=== PATIENT | male | born 1980 | race Caucasian/White ===

== ENCOUNTER 2021-09-26 08:00 | Day surgery (SDC) | payer OTHER ==
[2021-09-26] VITALS (139 sets, daily range): BP systolic 93–176; BP diastolic 51–100
[~2021-09-26] VITALS: Ht 172.7 cm; Wt 86.0 kg
--- NOTE | 2021-09-26 07:40 | NUR ---
PT ARRIVES AMBULATORY TO FLOOR WITH SIGNIFICANT OTHER. ORIENTED TO ROOM & CALL LIGHT. CONSENTS OBTAINED.
--- NOTE | 2021-09-26 07:45 | NUR ---
discussed poc with pt and understanding stated. pt alert and oriented in no distress. all questions answered.
[2021-09-26 08:42] LABS: HEMATOCRIT 49.6 % (39.0-50.0); HEMOGLOBIN 16.3 g/dl (14.0-18.0); IMMATURE GRANULOCYTES 0.2 % (0.0-5.0); MEAN CELL VOLUME 91.9 fL CALC (80.0-100.0); MEAN CORPUSCULAR HGB 30.2 pG CALC (26.0-32.0); MEAN CORPUSCULAR HGB CONC 32.9 g/dL CAL (32.0-36.0); NEUT# 3.16 thou/uL (1.82-7.42); RED BLOOD COUNT 5.4 mill/uL (4.70-6.10)
--- NOTE | 2021-09-26 08:55 | NUR ---
vs obtained and Dr Bay notified. new orders received.
[2021-09-26 09:18] LABS: ALBUMIN 4.6 g/dL (3.2-5.0); ALKALINE PHOSPHATASE 73 u/l (38-126); ANION GAP 12 (6-22 (CALC)); BILIRUBIN, TOTAL 0.6 mg/dL (0.0-1.4); BUN 12 mg/dL (9-20); BUN/CREATININE RATIO 12 (12-20 (CALC)); CARBON DIOXIDE 33 mmol/l (22-30); CHLORIDE 99 mmol/l (95-108); GFR > 60 ML/MIN (>=60 (CALC)); GFR FOR AFR.AMER. > 60 ML/MIN (>=60 (CALC)); POTASSIUM 3.5 mmol/l (3.5-5.1); SGOT/AST 25 u/l (17-59); SODIUM 140 mmol/l (137-146)
--- NOTE | 2021-09-26 09:40 | NUR ---
dr rodriguez at bedside
--- NOTE | 2021-09-26 10:15 | NUR ---
pt resting in no distress. call light within reach and encouraged to call for assistance.
--- NOTE | 2021-09-26 11:45 | NUR ---
Induction Note Patient to [facility] procedure room. Time out performed at 1145. Patient placed on monitors, Imelda hugger, bilateral wrist restraints applied for ET tube protection. Versed 5mg given IV push at 1147 Tourniquet applied to rt arm Lidocaine 100mg given at IV push followed by Rocoronium 10mg at 1148 IV push and held for 90 seconds. Propofol bolus of 20mg given at 1149 IV push. Succinylcholine 80mg given IV push at . Smooth intubation with 7.5 ETT. Positive CO2. Positive Auscultation for air exchange. Patient placed on ventilator for spontaneous ventilation. Placed on Propofol IV drip at 12. OG inserted. Positive air on auscultation. Positive gastric content. Stomach washed at this time. Naltrexone 75mg given via OG tube with Clonidine 02. mg given via OG Tube. OG clamped for 45 minutes. Will monitor patient for symptoms of withdrawal and adjust propfol accordingly.
--- NOTE | 2021-09-26 12:55 | NUR ---
OG open note OG open at this time. Gastric content draining into drainage bag. OG to drain for 45 minutes. Propofol will be titrated down based on patient. Given Iv clonidine 0.2mg as ordered for elevated bp. will continue to monitor. dr rodriguez at bedside.
--- NOTE | 2021-09-26 13:20 | NUR ---
Clonidine 0.2mg iv given as per direction of Dr Bay for elevated bp. Will continue to monitor
--- NOTE | 2021-09-26 13:45 | NUR ---
OG close note Stomach washed at this time. Naltrexone 50 mg with Clonidine 0.3 mg via OG tube. OG will be clamped for 45 minutes.
--- NOTE | 2021-09-26 14:30 | NUR ---
OG open note OG open at this time. Gastric content draining into drainage bag. OG to drain for 45 minutes. Propofol will be titrated down based on patient.
--- NOTE | 2021-09-26 15:30 | NUR ---
OG close note Stomach washed at this time. Naltrexone 25 mg with Clonidine 0.2 mg via OG tube. OG will be clamped for 45 minutes.
--- NOTE | 2021-09-26 17:30 | NUR ---
Extubation note Closing medications given Benadryl 50mg IV push, Decadron 10mg IV push,Magnesium 4 grams IV, Zofran 8mg IV push, Octreotide 100mcg SC. Stomach washed out.
--- NOTE | 2021-09-26 18:00 | NUR ---
Extubation note Stomach washed out prior to extubation. Suctioned gastric content. OG removed. Patient extubated. Propofol Discontinued. Wrist restraints removed. Imelad hugger Removed. See [facility] Moderate sedate recovery record for further notes and assessment.
--- NOTE | 2021-09-26 18:30 | NUR ---
pt transported to tn via stretcher in no distress with spontaneous respirations. rouses to name. moves all extremities.
--- NOTE | 2021-09-26 18:50 | NUR ---
REPORT RECEIVED FROM Glen VILLANUEVA RN
--- NOTE | 2021-09-26 20:15 | NUR ---
PATIENT ASSESMENT COMPLETED AT THIS TIME. PATIENT ORIENTED TO SELF AND PLACE. NON LABORED BREATHING, RR OF 19 CURRENTLY ON 2L VIA NASAL CANNULA SATURATING 96%. NORMAL HEART RHYTHM, APICAL RATE OF 77. #18 IN LEFT HAND AND #20 IN RIGHT ANTECUBITAL. #18 FLUSHED AND PATENT, #20 REMOVED. SKIN DRY AND INTACT. CALL LIGHT AND BEDSIDE TABLE WITHIN REACH.
--- NOTE | 2021-09-26 20:15 | NUR ---
IV SITE AT RIGHT AC PULLED, PROPOFOL IN LINE. ROAD CUTTER NOTIFIED.
--- NOTE | 2021-09-26 20:18 | NUR ---
PATIENT MEDICATED FOR NAUSEA, SEE EMAR.
--- NOTE | 2021-09-26 21:19 | NUR ---
PATIENT CLEANED UP MODERATE BM AT THIS TIME. TOLERATED WELL. PT ABLE TO TALK IN CLEAR SENTENCES. NO CURRENT COMPLAITNS AT THIS TIME. APTIENT ONLY STATES HE FEELS WEIRD, BUT CANNOT ARTICULATE HOW.
--- NOTE | 2021-09-26 22:43 | NUR ---
PATIENT CLEANED UP OF LARGE INCONTINET EPISODE AT THIS TIME.
--- NOTE | 2021-09-26 23:32 | NUR ---
PATIENT MEDICATED PER EMAR, SEE EMAR
--- NOTE | 2021-09-26 23:45 | NUR ---
PATIENT BACK IN CHAIR, STATES HE IS MORE COMOFORTABLE IN THE CHAIR AND IS ONLY ATTEMTING TO BECOME COMOFORTABLE.
--- NOTE | 2021-09-27 00:51 | NUR ---
PATIENT SLEEPING COMFORTABLY, NO NEEDS APPARENT AT THIS TIME. CALL LIGHT AND BEDSIDE TABLE WITHIN REACH.
[2021-09-27 03:15] VITALS: BP 107/57
--- NOTE | 2021-09-27 03:25 | NUR ---
REASSEMENT OF VITALS SIGNS DUE TO PATIENT VOMITING AND MOVING WHILE OBTAINING.
--- NOTE | 2021-09-27 03:40 | NUR ---
PATIENT CLEANED UP, SHORT EPISODE OF NAUSEA AND VOMITING. MEDICATIONS ADMINISTERED PER EMAR, SEE EMAR.
--- NOTE | 2021-09-27 04:18 | NUR ---
INTEGRITY ANALYST IN TO DRAW MORNING LABS AT THIS TIME.
[2021-09-27 05:14] LABS: HEMATOCRIT 48.7 % (39.0-50.0); HEMOGLOBIN 16.2 g/dl (14.0-18.0); IMMATURE GRANULOCYTES 0.3 % (0.0-5.0); MEAN CELL VOLUME 91.2 fL CALC (80.0-100.0); MEAN CORPUSCULAR HGB 30.3 pG CALC (26.0-32.0); MEAN CORPUSCULAR HGB CONC 33.3 g/dL CAL (32.0-36.0); NEUT# 9.91 thou/uL (1.82-7.42); RED BLOOD COUNT 5.34 mill/uL (4.70-6.10); RED CELL DISTRI WIDTH 12.2 % (11.5-15.5)
[2021-09-27 05:21] LABS: ALBUMIN 4.3 g/dL (3.2-5.0); ALKALINE PHOSPHATASE 75 u/l (38-126); ANION GAP 15 (6-22 (CALC)); BILIRUBIN, TOTAL 0.6 mg/dL (0.0-1.4); BUN 11 mg/dL (9-20); BUN/CREATININE RATIO 13 (12-20 (CALC)); CHLORIDE 107 mmol/l (95-108); CREATININE 0.9 mg/dL (0.7-1.3); GFR > 60 ML/MIN (>=60 (CALC)); GFR FOR AFR.AMER. > 60 ML/MIN (>=60 (CALC)); MAGNESIUM 2.3 mg/dL (1.6-2.3); POTASSIUM 4.1 mmol/l (3.5-5.1); SGOT/AST 20 u/l (17-59); SODIUM 143 mmol/l (137-146); TOTAL PROTEIN 7.2 g/dL (6.3-8.2)
[2021-09-27 05:34] LABS: CARBON DIOXIDE 25 mmol/l (22-30)
--- NOTE | 2021-09-27 06:02 | NUR ---
PATIENT DENIES ANY CURRENT NEEDS, CALL LIGHT WITHIN REACH.
[2021-09-27 09:49] VITALS: BP 112/65
--- NOTE | 2021-09-27 17:12 | NUR ---
IV site discontinued, cath intact. No edema , no redness, voices no discomfort.
--- NOTE | 2021-09-27 17:15 | NUR ---
PT EDUCTAED TO FOLLOW UP WITH ANR AND TAKE MEDS PRSCRIBED. ALSO EDUCATED BY MD AND PT ADVOCATE ON ALL DC INSTRUCTIONS. PT WHEELED OUT OF HOSPITAL BY HOME
== END 2021-09-27 16:30 | disposition home or self-care (01) | DRG 897 ==
LOC: ANR 08:00 → MS2 08:00 → ANR 11:15
PROVIDERS: ATTEND Anesthesiology
DX: F11.20 Opioid dependence, uncomplicated (principal)
CPT/HCPCS: J2060; J2354